=== PATIENT | female | born 1970 | race Caucasian/White ===

== ENCOUNTER 2022-11-28 21:57 | Emergency (ER) | payer MEDICAID ==
[~2022-11-28] VITALS: Ht 160 cm; Wt 61.7 kg
[2022-11-28 22:39] VITALS: BP 103/85; PULSE 100; RESP 18; TEMP 97.8; O2SAT 99
--- NOTE | 2022-11-28 23:13 | NUR ---
Frannie liu in [facility] - 11/28/22 at 2316 by BELEN PT TAKEN TO BED 2
--- NOTE | 2022-11-28 23:13 | NUR ---
PT TAKEN TO BED 1
[2022-11-28 23:29] LABS: APPEARANCE,URINE CLOUDY (CLEAR); BILIRUBIN,URINE NEGATIVE (NEGATIVE); BLOOD, URINE 3+ (NEGATIVE); COLOR,URINE RED (YELLOW); LEUKOCYTE ESTERASE ,URINE 3+ (NEGATIVE); NITRITE, URINE NEGATIVE (NEGATIVE); PH,URINE 6.5 (5.0-9.0); UGLUCOSE NEGATIVE (NEGATIVE)
[2022-11-28 23:32] LABS: RBC,URINE TOO NUMEROUS TO COUN /HPF (0-5)
--- NOTE | 2022-11-28 23:48 | NUR ---
Dr. Larsen examining patient.
[2022-11-29] MEDS ORDERED: LIDOCAINE 5% 1 EA PATCH TP ONE (00:05)
[2022-11-29] MEDS ORDERED: cephALEXin 500 MG CAP PO ONE (00:05)
[2022-11-29] MEDS ORDERED: KETOROLAC 30 MG/ML VIAL IM ONE (00:05)
[2022-11-29] MEDS ORDERED: LID5T TP (00:14)
[2022-11-29] MEDS ORDERED: IBUP-2213 PO (00:14)
[2022-11-29] MEDS ORDERED: CEPH-588 PO (00:14)
[2022-11-29 00:50] VITALS: BP 103/85; PULSE 100; RESP 18; TEMP 97.8; O2SAT 99
--- NOTE | 2022-11-29 01:13 | NUR ---
Patient discharged with v/s stable. Written and verbal after care instructions given and explained. Patient alert, oriented and verbalized understanding of instructions. Ambulatory with steady gait. All questions addressed prior to discharge. ID band removed. Patient advised to follow up with PMD. Rx of KEFLEX, IBUPROFEN, LIDOCAINE given. Patient educated on indication of medication including possible reaction and side effects. Opportunity to ask questions provided and answered.
== END 2022-11-29 01:13 | disposition home or self-care (01) ==
LOC: MED 21:57
DX: N39.0 Urinary tract infection, site not specified (principal); M54.40 Lumbago with sciatica, unspecified side; E11.9 Type 2 diabetes mellitus without complications; Z79.899 Other long term (current) drug therapy; Z86.19 Personal history of other infectious and parasitic diseases
CPT/HCPCS: 81001; 87086; 96372; 99283; J1885